=== PATIENT | male | born 1995 | race African-American/Black ===

== ENCOUNTER 2021-11-01 22:08 | Emergency (ER) | payer BC ==
[~2021-11-01] VITALS: Ht 180.3 cm; Wt 93.0 kg
[2021-11-02] MEDS ORDERED: XANAX0.5 MG PO (01:01)
== END 2021-11-02 01:06 | disposition home or self-care (01) ==
LOC: FSED 11-02 00:31
DX: F41.9 Anxiety disorder, unspecified (principal); F17.200 Nicotine dependence, unspecified, uncomplicated
CPT/HCPCS: 99282